=== PATIENT | male | born 1950 | race Caucasian/White ===

== ENCOUNTER 2018-10-20 14:22 | Outpatient (CLI) | payer OTHER ==
[2018-10-20 16:19] LABS: INTERNATIONAL NORMALIZED RATIO 1.11 (0.93-1.1); PROTHROMBIN TIME 11.6 Seconds (9.6-11.5)
[2018-10-20 16:21] LABS: ALANINE AMINOTRANSFERASE 26 U/L (12-78); ALBUMIN 4.4 g/dL (3.4-5.0); ANION GAP 5 mmol/L (5-15); CALCIUM 8.9 mg/dL (8.5-10.1); CHLORIDE 110 mmol/L (98-107); CREATININE 1.19 mg/dL (0.7-1.3)
[2018-10-20 16:23] LABS: ALKALINE PHOSPHATASE 64 U/L (45-117); BILIRUBIN,TOTAL 0.7 mg/dL (0.2-1.0)
[2018-10-20 16:24] LABS: MEAN CORPUSCULAR HEMOGLOBIN 27.9 pg (27.5-34.5); MEAN CORPUSCULAR HGB CONC 32.5 g/dL (33.2-36.2); MEAN CORPUSCULAR VOLUME 85.8 fL (81-97); MEAN PLATELET VOLUME 9.3 fL (7.4-10.4); PLATELET COUNT 224 x10^3/uL (130-400); RED BLOOD COUNT 5.78 x10^6/uL (4.38-5.82); RED CELL DISTRIBUTION WIDTH 15.6 % (9.4-14.8)
[2018-10-20] MEDS ORDERED: AMLO2.5T5 PO (16:31)
[2018-10-20] MEDS ORDERED: LOSA50TA14 PO (16:31)
[2018-10-20] MEDS ORDERED: TRAM50TA2 PO (16:32)
[2018-10-20] MEDS ORDERED: TAMS-11 PO (16:32)
[2018-10-20] MEDS ORDERED: ATOR40TA78 PO (16:32)
[2018-10-20 16:39] LABS: CULTURE INDICATED? YES; MICROSCOPIC INDICATED
[2018-10-20 16:58] LABS: BASOPHILS # (AUTO) 0.05 x10^3/uL (0-0.1); BASOPHILS % (AUTO) 0 % (0-1); EOSINOPHILS # (AUTO) 0.25 x10^3/uL (0-0.4); EOSINOPHILS % (AUTO) 2 % (1-7); LYMPHOCYTES # (AUTO) 5.31 x10^3/uL (1-3.4); LYMPHOCYTES % (AUTO) 41 % (22-44); MONOCYTES # (AUTO) 0.65 x10^3/uL (0.2-0.8); MONOCYTES % (AUTO) 5 % (2-9); NEUTROPHILS # (AUTO) 6.79 x10^3/uL (1.8-6.8); NEUTROPHILS % (AUTO) 52 % (42-75)
[2018-10-20 16:59] LABS: MD SCAN
[2018-10-20 17:04] LABS: HCT (SEDRATE) 49.6 % (39.2-51.8)
[2018-12-01] MEDS ORDERED: CHOL200052 PO (06:35)
[2018-12-01] MEDS ORDERED: POTA20TA14 PO (06:35)
[2018-12-01] MEDS ORDERED: APIX5TAB PO (06:35)
== END 2018-10-20 23:59 | disposition home or self-care (01) ==
LOC: STAR 14:22
PROVIDERS: ATTEND Orthopaedic Surgery Orthopaedic Surgery of the Spine
DX: Z01.818 Encounter for other preprocedural examination (principal); I48.91 Unspecified atrial fibrillation; I63.9 Cerebral infarction, unspecified; I10 Essential (primary) hypertension; M48.061 Spinal stenosis, lumbar region without neurogenic claudication; M43.10 Spondylolisthesis, site unspecified
CPT/HCPCS: 36415; 71046; 80053; 80074; 81001; 85025; 85610; 85651; 85730; 87086; 93005

== ENCOUNTER → 2018-11-09 | Outpatient (CLI) | payer MEDICARE, OTHER ==
[~2018-11-09] MED LIST: AMLO2.5T5 PO; ATOR40TA78 PO; LOSA50TA14 PO; REGADENOSON 0.4 MG/5 ML SYRINGE ONE; TAMS-11 PO; TRAM50TA2 PO
== END | disposition home or self-care (01) ==
LOC: CVU 08:35
PROVIDERS: ATTEND Internal Medicine Cardiovascular Disease
DX: Z01.810 Encounter for preprocedural cardiovascular examination (principal); I08.8 Other rheumatic multiple valve diseases; I65.23 Occlusion and stenosis of bilateral carotid arteries; I48.91 Unspecified atrial fibrillation; I63.9 Cerebral infarction, unspecified; I10 Essential (primary) hypertension; F17.200 Nicotine dependence, unspecified, uncomplicated
CPT/HCPCS: 93306; 93880; J2785

== ENCOUNTER 2018-11-10 08:21 | Outpatient (CLI) | payer MEDICARE, OTHER ==
[~2018-11-10 08:21] MED LIST changes: -REGADENOSON 0.4 MG/5 ML SYRINGE ONE
== END 2018-11-10 23:59 | disposition home or self-care (01) ==
LOC: CFH 08:21
PROVIDERS: ATTEND Internal Medicine Cardiovascular Disease
DX: Z01.810 Encounter for preprocedural cardiovascular examination (principal); I48.91 Unspecified atrial fibrillation; I63.9 Cerebral infarction, unspecified; I10 Essential (primary) hypertension
CPT/HCPCS: 78452; 93017; A9502

== ENCOUNTER → 2018-12-01 | Day surgery (SDC) | payer MEDICARE, OTHER ==
[~2018-12-01] VITALS: Ht 180.3 cm; Wt 113.2 kg
[~2018-12-01] MED LIST changes: +APIX5TAB PO; +CHOL200052 PO; +POTA20TA14 PO; +PROPOFOL 10 MG/ML, 20ML ONE
[2018-12-01 06:37] VITALS: BP 125/94
[2018-12-01 07:00] LABS: ANION GAP 8 mmol/L (5-15); CALCIUM 8.8 mg/dL (8.5-10.1); CHLORIDE 111 mmol/L (98-107); CREATININE 1.06 mg/dL (0.7-1.3)
== END | disposition home or self-care (01) ==
LOC: CACL 05:59
PROVIDERS: ATTEND Internal Medicine Cardiovascular Disease
DX: I48.91 Unspecified atrial fibrillation (principal); E78.5 Hyperlipidemia, unspecified; I10 Essential (primary) hypertension; Z86.73 Personal history of transient ischemic attack (TIA), and cerebral infarction without residual deficits; Z79.82 Long term (current) use of aspirin; Z88.0 Allergy status to penicillin; Z87.891 Personal history of nicotine dependence
CPT/HCPCS: 36415; 80048; 92960; J2704